=== PATIENT | male | born 2000 | race Hispanic/Latino ===

== ENCOUNTER 2021-11-15 19:24 | Emergency (ER) | payer OTHER, SELFPAY ==
[2021-11-15 19:33] VITALS: BP 128/76; PULSE 99; RESP 20; TEMP 37.7; O2SAT 100
--- NOTE | 2021-11-15 20:23 | ED.GENADULT ---
HPI - General Adult General Chief complaint: Skin/Abscess/Foreign Body Stated complaint: wound to buttocks Time Seen by Provider: 11/15/21 20:22 Source: patient and family Mode of arrival: ambulatory Limitations: language barrier History of Present Illness HPI narrative: 21 years old male, history of autism brought to the emergency room by his parents who do not speak Romanian, the patient understand Romanian but cannot communicate verbally. He complains of a growth at his bottom noticed in the last few days. He denies any fever, chills, nausea, vomiting Related Data Allergies Allergy/AdvReac Type Severity Reaction Status Date / Time No Known Allergies Allergy Verified 11/15/21 19:38 Review of Systems Review of Systems: All systems reviewed & are unremarkable except as noted in HPI and below Exam Narrative: General appearance: Well-developed, well-nourished Skin: Normal color, 1 cm x 1 cm skin growth at the left buttock, soft, nontender, no fluctuation, no erythema, no discharge, 1 cm above the surface of the skin looks like skin tag Head: Normocephalic, nontraumatic Eyes: Clear conjunctiva ENT: Oropharynx normal, ears normal, nose normal Neck: Supple, nontender Chest and respiratory: Airway patent, no respiratory distress, no accessory muscle use Heart: Regular rate/rhythm Abdomen: Soft, nontender, no organomegaly, quiet bowel sounds Vascular: Normal peripheral pulses, normal capillary refill. Musculoskeletal: Normal range of motion, nontender back Neurologic: Alert, unable to communicate verbally, seems like understand my speech to him and follow my commands Course Course Emergency Course: Looks like skin tag or sebaceous cyst, needle aspiration showed only fresh red bright blood, no pus, no erythema. No surrounding skin abnormality. Patient will be discharged to follow-up with a surgeon for possible excision Vital Signs Vital signs: Vital Signs Temperature 37.7 C H 11/15/21 19:33 Pulse Rate 99 11/15/21 19:33 Respiratory Rate 20 11/15/21 19:33 Blood Pressure 128/76 11/15/21 19:33 Pulse Oximetry 100 11/15/21 19:33 Oxygen Delivery Room Air 11/15/21 19:33 Temperature 37.7 C H 11/15/21 19:33 Pulse Rate 99 11/15/21 19:33 Respiratory Rate 20 11/15/21 19:33 Blood Pressure 128/76 11/15/21 19:33 Pulse Oximetry 100 11/15/21 19:33 Oxygen Delivery Room Air 11/15/21 19:33 Procedures Other Procedure Procedure 1: Other Procedure: 18-gauge needle, Betadine swab, fresh red bright blood, no abscess Medical Decision Making Vital Signs Vital Signs: Vital Signs Temperature 37.7 C H 11/15/21 19:33 Pulse Rate 99 11/15/21 19:33 Respiratory Rate 20 11/15/21 19:33 Blood Pressure 128/76 11/15/21 19:33 Pulse Oximetry 100 11/15/21 19:33 Oxygen Delivery Room Air 11/15/21 19:33 Temperature 37.7 C H 11/15/21 19:33 Pulse Rate 99 11/15/21 19:33 Respiratory Rate 20 11/15/21 19:33 Blood Pressure 128/76 11/15/21 19:33 Pulse Oximetry 100 11/15/21 19:33 Oxygen Delivery Room Air 11/15/21 19:33 Critical Care Time Critical Care Time Critical Care Time: No Discharge Plan Discharge Clinical Impression: Abnormal skin growth Patient Disposition: Home, Self-Care Condition: Stable Instructions: Antibiotic Form, Epidermal Inclusion Cysts (ED) Additional Instructions: Call Dr. Welch tomorrow for appointment Patient Language: Mal[place]ian Follow-up/Referrals: Evaristo,ANGELICA Gonzalez [Primary Care Provider] - Reena Welch MD [Physician] - 11/16/21
[2021-11-15 20:47] VITALS: TEMP 36.9
[2021-11-15 21:03] VITALS: RESP 16; TEMP 37.1; O2SAT 100
== END 2021-11-15 21:04 | disposition home or self-care (01) ==
LOC: ANHED 21:00
PROVIDERS: Emergency Provider Emergency Medicine; PCP Registered Nurse
DX: L98.9 Disorder of the skin and subcutaneous tissue, unspecified (principal); F84.0 Autistic disorder
CPT/HCPCS: 10160; 99282

== ENCOUNTER 2024-04-08 14:28 | Emergency (ER) | payer SELFPAY ==
--- NOTE | 2024-04-08 14:32 | ED.UPPEXIN ---
HPI - Extremity Injury (Upper) General Chief Complaint: Wound/Laceration Stated Complaint: left middle finger painful Time Seen by Provider: 04/08/24 14:50 Source: patient and RN notes reviewed Mode of arrival: ambulatory Limitations: no limitations History of Present Illness HPI narrative: 23-year-old male presents with concern for swelling, pain, redness to the distal 3rd digit of the left hand near the nail bed. He denies drainage. Denies injury MD complaint: injury to: left and finger Related Data Allergies Allergy/AdvReac Type Severity Reaction Status Date / Time No Known Allergies Allergy Verified 11/15/21 19:38 Review of Systems Review of Systems: GENERAL: Well-appearing, well-nourished, and in no acute distress. HEAD: Normocephalic EYES: PERRLA, conjunctivae clear NECK: Supple. CHEST: Speaks in full sentences. No respiratory distress. HEART: Regular rate and rhythm. Normal and equal peripheral pulses. EXTREMITIES: 3rd digit of Left hand has normal strength and sensation. Normal sensation of each side of finger. Distal capillary refill less than 3 seconds. SKIN: Warn, dry, intact, pink. Erythema, edema with yellow pus pocket noted beneath the nail bed of the 3rd digit of the left hand NEURO: Alert and oriented x3. PSYCH: Normal mood and affect All systems reviewed & are unremarkable except as noted in HPI and below PMFSH Comments At time of signature, agree with nursing past medical, surgical, social and family history. There is no relevant family history pertinent to the presenting complaint Exam Narrative: GENERAL: Well-appearing, well-nourished, and in no acute distress. HEAD: Normocephalic, atraumatic. EYES: PERRLA, conjunctivae clear NECK: Supple. CHEST: Speaks in full sentences. No respiratory distress. HEART: Regular rate and rhythm. Normal and equal peripheral pulses. EXTREMITIES: [Xxx] has grossly normal strength and sensation, grossly normal range of motion. No edema or ecchymosis. 5/5 strength with [xxx] flexion and extension. Normal sensation with sensitivity to light touch and pain. No point tenderness. No open wounds, no skin tenting, no devitalized tissue or atrophy, no trophic changes, no obvious deformity, alignment normal, nearby joints and structures intact. Distal pulses palpable and equal bilaterally, skin warm, dry, pink. Capillary refill less than 3 seconds. SKIN: Warm, dry, no rash. NEURO: Alert and oriented x3. PSYCH: Normal mood and affect Course Course Emergency Course: Patient is aware of diagnosis, understands and agrees to treatment plan. Anticipatory guidance given. Patient agrees to follow-up as directed and is aware of reasons to seek care at the emergency department. Portions of this record may have been created with voice recognition software Level of Care: Express Care Visit Vital Signs Vital signs: Reviewed. Procedures Abscess I/D hand: Date of Incision: 04/08/24 Time of Incision: 15:08 Local Anesthetic: none (emla) Technique: incised with #11 blade Amount of fluid expressed (mL): 2 Irrigation: No Packing used?: none I&D Results: Pus Critical Care Time Critical Care Time Critical Care Time: No Discharge Plan Discharge Clinical Impression: Paronychia Patient Disposition: Home, Self-Care Condition: Stable Instructions: Antibiotic Form, Paronychia (ED) Additional Instructions: Soak your nail: Soak your nail in a mixture of equal parts vinegar and water 3 or 4 times each day. This will help decrease inflammation. Apply a warm compress: Soak a washcloth in warm water and place it on your nail. This will help decrease inflammation. Elevate: Raise your nail above the level of your heart as often as you can. This will help decrease swelling and pain. Prop your nail on pillows or blankets to keep it elevated comfortably. Use lotion: Apply lotion after you wash your hands. This will prevent your skin from becoming too dry. Please follow-up with your primary care doctor in the next 1-2 days. If you cannot follow-up with your primary care doctor please go to the ED for any urgent issues. 2) If you have any worsening of symptoms or any other concerns please go to the ED immediately. 3) Please take medications as prescribed andcontinue taking your home medications as usual. Remoja tu u?a: Remoja tu u?a en simon mezcla de partes iguales de vinagre y agua 3 o 4 veces al d?a. [place] ayudar? a disminuir la inflamaci?n. Aplique simon compresa tibia: empape smion toallita en agua tibia y col?quela sobre la u?a. [place] ayudar? a disminuir la inflamaci?n. Elevar: levante la u?a por encima del nivel del coraz?n weaver a menudo tawnya pueda. [place] ayudar? a disminuir la hinchaz?n y el dolor. Apoye la u?a sobre almohadas o mantas para mantenerla elevada c?modamente. Use loci?n: aplique loci?n despu?s de lavarse las galo. [place] evitar? que tu piel se seque demasiado. Lauren un seguimiento con fletcher m?dico de atenci?n primaria en los pr?ximos 1 o 2 d?as. Si no puede realizar un seguimiento con fletcher m?dico de atenci?n primaria, vaya al servicio de urgencias si tiene alg?n problema urgente. 2) Si francis s?ntomas empeoran o tiene alguna otra inquietud, acuda al servicio de urgencias de inmediato. 3) [place] los medicamentos seg?n lo recetado y contin?e kristopher?ndolos en casa tawnya de costumbre. Patient Language: [place] Prescriptions: New sulfamethoxazole-trimethoprim 800-160 mg tablet 1 tablet PO Q12H 7 Days Qty: 14 0RF Follow-up/Referrals: Evaristo,ANGELICA Gonzalez [Primary Care Provider] - Time of Disposition: 15:24
[2024-04-08 14:42] VITALS: BP 150/76; PULSE 103; RESP 16; TEMP 37; O2SAT 99
[2024-04-08] MEDS: LIDOCAINE/PRILOCAINE CREAM 2.5-2.5% TUBE 1 EACH TOPICAL (15:03)
== END 2024-04-08 15:27 | disposition home or self-care (01) ==
PROVIDERS: Emergency Provider Nurse Practitioner; PCP Registered Nurse
DX: L03.012 Cellulitis of left finger (principal); F84.0 Autistic disorder
CPT/HCPCS: 10060; 87070; 87075; 87181; 87205; 99213; G0463